=== PATIENT | female | born 1970 ===

== ENCOUNTER 2019-09-18 07:01 | Day surgery (SDC) | payer OTHER ==
[~2019-09-18] VITALS: Ht 167.6 cm; Wt 80.6 kg
[~2019-09-18 07:01] MED LIST: ALBU90OI INH; ELOCON15 GM; Erythromycin 2%30 GM; KETO10 PO; Loratadine10 MG PO; OMEPRAZOLE20 MG PO; ONDA4 PO; OXYACE5T PO; RXOXYACE PO; TERB250 PO; WARF5; WARF5 PO; WARF7.5 PO; [UNRECOGNIZED DRUG - OTHER] PO
== END 2019-09-18 09:50 | disposition home or self-care (01) ==
LOC: ORSCSDS 07:01
PROVIDERS: Ophthalmology
PROC: 080P0ZZ Alteration of Left Upper Eyelid, Open Approach (ICD-10-PCS; principal; 2019-09-18 08:30)
PROC: 080N0ZZ Alteration of Right Upper Eyelid, Open Approach (ICD-10-PCS; principal; 2019-09-18 08:30)
DX: H02.831 Dermatochalasis of right upper eyelid (principal); H02.834 Dermatochalasis of left upper eyelid; Z86.718 Personal history of other venous thrombosis and embolism; E78.00 Pure hypercholesterolemia, unspecified; Z86.711 Personal history of pulmonary embolism; Z79.01 Long term (current) use of anticoagulants; Z79.899 Other long term (current) drug therapy
CPT/HCPCS: J2250; J2405; J2704; J3010; J7030

== ENCOUNTER 2020-01-03 07:00 | Day surgery (SDC) | payer OTHER ==
[~2020-01-03] VITALS: Ht 170.2 cm; Wt 80.6 kg
[2020-01-03] MEDS ORDERED: WARF5 PO (07:23)
--- NOTE | 2020-01-03 07:47 | NUR ---
Ambulatory in Day Surgery History, Chart, Medications and Allergies reviewed before start of procedure.Patient confirms NPO status and agrees with scheduled surgery. Patient states colon prep results clear.Lungs clear T/O to Auscultation. Patient States Post-Procedure ride home has been arranged WITH MOTHER.
--- NOTE | 2020-01-03 08:33 | NUR ---
01/03/20 0833 Angela Sarkar HEARTRAITE DROPPED TO 40'S DURING PROCEDURE. ATROPINE GIVEN AND HEART INCREASED TO 80'S.
--- NOTE | 2020-01-03 08:33 | NUR ---
RECIEVED PATIENT FROM ENDO 1 AWAKE TALKING RECOVERY STARTED
--- NOTE | 2020-01-03 09:00 | NUR ---
Discharge instructions reviewed with patient. Patient verbalizes understanding. Copy given to patient to take home. Patient States Post-Procedure ride home has been arranged. Discharged via wheelchair to private car for ride home.
== END 2020-01-03 22:50 | disposition home or self-care (01) ==
LOC: ORSCMMR 07:00 → ORD 08:00 → ORSCMMR 22:50
PROVIDERS: Internal Medicine Gastroenterology
PROC: 0DBN8ZX Excision of Sigmoid Colon, Via Natural or Artificial Opening Endoscopic, Diagnostic (ICD-10-PCS; principal; 2020-01-03 08:00)
DX: Z12.11 Encounter for screening for malignant neoplasm of colon (principal); K63.5 Polyp of colon; K57.30 Diverticulosis of large intestine without perforation or abscess without bleeding; Z86.711 Personal history of pulmonary embolism; F17.210 Nicotine dependence, cigarettes, uncomplicated; Z79.01 Long term (current) use of anticoagulants; Z79.899 Other long term (current) drug therapy
CPT/HCPCS: 88305; J0461; J2704; J7120

== ENCOUNTER 2022-06-28 13:11 | Emergency (ER) | payer OTHER ==
[~2022-06-28] VITALS: Ht 167.6 cm; Wt 85.3 kg
[2022-06-28] MEDS ORDERED: ELIQUIS2.5 M1 PO (14:51)
[2022-06-28] MEDS ORDERED: ALLOPURINOL100 M1 PO (14:51)
[2022-06-28] MEDS ORDERED: METFORMIN HCL500 M2 PO (14:52)
[2022-06-28] MEDS ORDERED: COLCRYS0.6 M1 PO (14:52)
[2022-06-28] MEDS ORDERED: Simvastatin10 MG PO (14:52)
== END 2022-06-28 15:13 | disposition home or self-care (01) ==
LOC: ER 13:11
DX: R22.42 Localized swelling, mass and lump, left lower limb (principal); M79.675 Pain in left toe(s); E11.9 Type 2 diabetes mellitus without complications; Z79.01 Long term (current) use of anticoagulants; Z79.899 Other long term (current) drug therapy; Z79.84 Long term (current) use of oral hypoglycemic drugs; Z86.718 Personal history of other venous thrombosis and embolism; Z86.711 Personal history of pulmonary embolism; Z88.5 Allergy status to narcotic agent; Z88.1 Allergy status to other antibiotic agents
CPT/HCPCS: 93971